=== PATIENT | male | born 1995 | race Caucasian/White ===

== ENCOUNTER 2025-06-02 14:25 | Emergency (ER) | payer BC, OTHER, SELFPAY ==
[2025-06-02 14:26] VITALS: BMI 21.3
[2025-06-02 14:28] VITALS: BP 124/72
[2025-06-02 14:52] LABS: Hematocrit 46.1 % (39.0-52.0); Hemoglobin 15.8 g/dL (13.0-18.0); Mean Corp Hgb Conc. 34.3 g/dL (33.0-37.0); Mean Corpuscular Volume 87.6 fL (80.0-94.0); Nucleated Red Blood Cells % 0 % (-); Platelet Count 182 10^3/uL (130-400); Red Cell Dist. Width 12.3 % (11.5-14.5)
[2025-06-02 14:56] LABS: ALT (SGPT) 30 U/L (0-50); AST (SGOT) 23 U/L (17-59); Albumin 4.1 g/dl (3.5-5.0); Alkaline Phosphatase 57 U/L (38-126); Blood Urea Nitrogen 10 mg/dl (9-20); Calcium 8.6 mg/dl (8.4-10.2); Carbon Dioxide 31 mmol/L (22-30); Chloride 103 mmol/L (98-107); Glucose 91 mg/dl (70-99); Potassium 4.0 mmol/L (3.5-5.1); Sodium 137 mmol/L (135-145); Total Protein 6.9 g/dl (6.3-8.2); eGFR > 60.00
--- NOTE | 2025-06-02 15:56 | ED.GENMED ---
History of Present Illness
<Franca Hinkle PA-C - Last Filed: 06/02/25 19:19>
General
Chief Complaint: Headache
Source: patient and family
Exam Limitations: none
Time Seen by Provider: 06/02/25 15:43
History of Present Illness
History of Present Illness:
29yoM with a history of seizures, hydrocephalus s/p PLATE GRAINER APPRENTICE shunt, and numerous brain surgeries presenting with his parents for evaluation of a headache. He reports a 'migraine' that has been ongoing for the past 3 days. He has taken Tylenol without
any relief. Headache is currently rated as an 11/10 in severity. Symptoms feel similar to when his PLATE GRAIN[employer]ENTICE shunt has been blocked in the past. Parents state he has been more sleepy than usual. No vomiting, head injuries, fevers, neck stiffness. He
follows with Dr. Aleksandr Harry at [facility] and last had a shunt revision about 2 years ago. He also 'non-stop' seizures per his parents which is typical for him. No recent changes in seizures or medications.
Past History
<Franca Hinkle PA-C - Last Filed: 06/02/25 19:19>
Past History
ED Past Medical History: Seizures (Tonic-clonic, petite mall, partial), Other (Pyloric stenosis, Bilateral hernia's) and Other (Depressed skull fracture)
ED Past Surgical History: Other (several craniotomies, placement of a plate as well as a nuerostimulator)
Social History
Tobacco: Non-smoker
Alcohol: None
Drug: None
Personal: Single
Living: with family
Employment: Student
Family History
Family History: Other
Phy Exam
<Franca Hinkle PA-C - Last Filed: 06/02/25 19:19>
Physical Exam
Physical Exam:
Awake and alert. No apparent distress
General Physical Exam
General Presentation: well appearing and no apparent distress
General Skin: warm and dry
General Habitus: normal
General Mental: alert
ENT Exam
ENT Exam: normocephalic
Additional ENT: No nuchal rigidity
Eye Exam
Eye Exam: PERRL and conjunctiva normal
Pulmonary Exam
Pulmonary Exam: no respiratory distress
Neurological Exam
Neurological Exam: alert, no motor deficits and speech normal
[place] Coma Scale
Eye Opening: Spontaneous
Verbal Response: Oriented
Motor Response: Obeys Commands
GCS Total Score: 15
Skin Exam
Skin Exam: normal color and warm/dry
Psychiatric Exam
Psychiatric Exam: normal mood/affect
Course
<Franca Hinkle PA-C - Last Filed: 06/02/25 19:19>
Orders/Labs/Results
Orders:
Orders
06/02/25 14:27
CT Head W/o Iv Contrast Urgent
Comment:
Reason For Exam: headache with h/o seizures and shunt
06/02/25 14:35
Complete Blood Count/With Diff Urgent
Comprehensive Metabolic Panel Urgent
06/02/25 16:34
Ketorolac [Toradol] 60 mg IM NOW STA
06/02/25 16:59
CR Abdomen - 2 Views Urgent
Comment:
Reason For Exam: check PLATE GRA[employer]ER [employer] shunt
CR Skull Complete Min 4 Views* Urgent
Comment:
Reason For Exam: check PLATE GRA[employer]ER [employer]ENTICE shunt
06/02/25 17:23
CR Chest - 2 Views Urgent
Reason For Exam: SHUNT SERIES
Abnormal Lab Results
06/02/25
14:35
WBC 3.7 L 10^3/uL
(4.8-10.8)
Monocytes % 12.0 H %
(1.7-9.3)
Eosinophils % 7.9 H %
(0-6)
Carbon Dioxide 31 H mmol/L
(22-30)
06/02/25 14:35
06/02/25 14:35
Vital Signs
Initial and Last Documented VS:
Initial Vital Signs
Temp Pulse Resp BP Pulse Ox
97.4 F 82 18 124/72 98
06/02/25 14:28 06/02/25 14:28 06/02/25 14:28 06/02/25 14:28 06/02/25 14:28
Last Documented Vital Signs
Temp Pulse Resp BP Pulse Ox
98.2 F 64 18 118/68 99
06/02/25 17:35 06/02/25 18:00 06/02/25 18:00 06/02/25 18:00 06/02/25 18:00
<Catracho Angulo MD - Last Filed: 06/02/25 18:48>
Orders/Labs/Results
Orders:
Orders
06/02/25 14:27
CT Head W/o Iv Contrast Urgent
Comment:
Reason For Exam: headache with h/o seizures and shunt
06/02/25 14:35
Complete Blood Count/With Diff Urgent
Comprehensive Metabolic Panel Urgent
06/02/25 16:34
Ketorolac [Toradol] 60 mg IM NOW STA
06/02/25 16:59
CR Abdomen - 2 Views Urgent
Comment:
Reason For Exam: check PLATE GRAIN[employer]ICE shunt
CR Skull Complete Min 4 Views* Urgent
Comment:
Reason For Exam: check PLATE GRAINER [employer]ENTICE shunt
06/02/25 17:23
CR Chest - 2 Views Urgent
Reason For Exam: SHUNT SERIES
Abnormal Lab Results
06/02/25
14:35
WBC 3.7 L 10^3/uL
(4.8-10.8)
Monocytes % 12.0 H %
(1.7-9.3)
Eosinophils % 7.9 H %
(0-6)
Carbon Dioxide 31 H mmol/L
(22-30)
06/02/25 14:35
06/02/25 14:35
Vital Signs
Initial and Last Documented VS:
Initial Vital Signs
Temp Pulse Resp BP Pulse Ox
97.4 F 82 18 124/72 98
06/02/25 14:28 06/02/25 14:28 06/02/25 14:28 06/02/25 14:28 06/02/25 14:28
Last Documented Vital Signs
Temp Pulse Resp BP Pulse Ox
98.2 F 64 18 118/68 99
06/02/25 17:35 06/02/25 18:00 06/02/25 18:00 06/02/25 18:00 06/02/25 18:00
<Franca Hinkle PA-C - Last Filed: 06/02/25 19:19>
MDM/Problems Addressed
Differential Diagnosis Includes:
29yoM here with headache x 3 days. Hx of chronic headaches and hydrocephalus with PLATE GRAINER APPRENTICE shunt. Worried about a PLATE GRAINER APPRENTICE shunt malfunction. No vomiting. Patient awake, alert, with a GCS of 15. Patient acutely non-toxic in no apparent distress. VSS.
Differential diagnosis includes: acute on chronic headache, migraine, increased intracranial pressure/PLATE GRAINER APPRENTICE shunt malfunction
Initial ED plan: Basic labs obtained in triage are unremarkable. Will check head CT.
<Franca Hinkle PA-C - Last Filed: 06/02/25 19:19>
*Pulse Oximetry
SaO2: 98
Patient hypoxic: no
*Critical Care Note
Total Time (30-74mins, 75-104mins- exclusive of procedures): Not Applicable
<Franca Hinkle PA-C - Last Filed: 06/02/25 19:19>
Update Note
Update Note:
Ventricular system nondilated and stable in appearance on head CT. There is a suspected slight increase in size of left extra-axial fluid collection which was 0.5cm in 2021 and is now 0.8cm. I called patient's [facility] neurosurgical office and spoke with
Melissa SOFIA who recommends shunt series x-rays and discharge if this is normal. Shunt series x-rays added which are unremarkable. Patient feeling improved after receiving IM Toradol. Advised outpatient f/u with his neurosurgical team and ED return
precautions reviewed. Parents in agreement with plan and patient discharged in stable condition.
ED Attending Note
<Franca Hinkle PA-C - Last Filed: 06/02/25 19:19>
-
Portions of this chart may have been created with voice recognition software.� Occasional wrong word or��sound alike� substitutions may have occurred due to the inherent limitations of voice recognition software.
<Catracho Angulo MD - Last Filed: 06/02/25 18:48>
ED Attending Note
Patient seen and examined by attending physician: Yes
I performed the substantive portion of visit, reviewed & personally made and approve the management plan that is documented in note by myself or JEFFREY.: Yes
ED Attending Note:
29-year-old male headache for 3 days. Gets frequent headaches. Mostly left-sided. Moderate nature. No thunderclap headache. No fever chills no neurologic symptoms. No photophobia. History of shunts. History of previous surgeries secondary to
seizures.\\
On exam patient is nontoxic in no distress. Chronic deformity to the left scalp. Shunt palpable to the right posterior scalp. Appears clinically normal. Neck is supple. Discs are sharp. Speech is normal. Grossly nonfocal. Warm and dry.
Perfusing well. Regular rate and rhythm.
CT scan is stable. Slight increased extra-axial fluid collection that is minimally changed from years ago. Ventricles are small. Nothing by CT scan to support a shunt issue.
We discussed with patient's neurosurgeon. Shunt study stable. Clinically stable. Will be discharged to follow-up
Discharge Plan
Departure
Patient Disposition: Home (Routine Discharge)
Date of Disposition: 06/02/25
Time of Disposition: 18:43
Patient with high blood pressure during this ER visit?: No
Discharge Problem:
Acute headache
Instructions: Headache, Adult (DC)
Prescriptions:
No Action
Midazolam 5 Mg/Ml Isecure Syr
3 sprays inhalation PRN PRN (Reason: seizures)
Patient Comments:
5mg/ml nasal spray - mom gives 3 sprays each nare PRN breakthrough seizures
Diastat
20 mg [place] PRN PRN (Reason: seizures)
levetiracetam 500 MG tablet
2,000 mg PO BID
clonazepam 1 MG tablet
2 mg PO PRN PRN (Reason: seizures)
lorazepam 1 MG tablet
1 mg PO TID
Phenobarbital
97 mg PO .EVERY AM
Phenobarbital
136.6 mg PO .EVERY EVENING
perampanel [Fycompa] 6 MG tablet
6 mg PO DAILY
Referrals:
UNKNOWN - PT DOES,NOT KNOW [Unknown Provider]
Activity Restrictions/Additional Instructions:
CT head and shunt series x-rays did not show any evidence of shunt malfunction.
Please follow-up with your neurologist and neurosurgeon. Return with any new or worsening symptoms including confusion, decreased responsiveness, or vomiting.
Interventions
Interventions:
*General Assessment Last Done: 06/02/25 17:23
*Neglect/Abuse Screening Last Done: 06/02/25 17:23
[facility] Risk Assessment Tool Last Done: 06/02/25 14:26
*Risk Screen - Suicide (C-SSRS) Last Done: 06/02/25 17:23
*Nursing Disposition Last Done: 06/02/25 18:57
ED- Neurological Assessment Last Done: 06/02/25 17:22
Discharge Date and Time
Discharge Date/Time: 06/02/25 18:58
Print Language: ANDORRAN
[2025-06-02 16:33] VITALS: BP 122/71
[2025-06-02] MEDS: TORADOL 60 MG IM (17:18)
[2025-06-02 17:35] VITALS: BP 122/71
[2025-06-02 18:00] VITALS: BP 118/68
== END 2025-06-02 18:58 | disposition home or self-care (01) ==
LOC: EMR 14:25
PROVIDERS: EMERGENCY PHYSICIAN Emergency Medicine; FAMILY PHYSICIAN Family Medicine
DX: R51.9 Headache, unspecified (principal); G91.9 Hydrocephalus, unspecified; Z98.2 Presence of cerebrospinal fluid drainage device
CPT/HCPCS: 96372; 99284; 70260; 70450; 71046; 74019; 80053; 85025